=== PATIENT | female | born 1960 | race Caucasian/White ===

== ENCOUNTER → 2017-06-17 | Day surgery (SDC) | payer BC ==
[2017-06-12 12:00] VITALS: BMI 34.0
[~2017-06-17] VITALS: Ht 157.5 cm; Wt 84.1 kg
[~2017-06-17] MED LIST: ATROPINE SULFATE 0.1 MG/ML 5ML SYR IV PRN; BUPIVACAINE 0.5 % 5 MG/1 ML PF 10ML VIAL ONE; CEFAZOLIN SOD 1000MG/7.5 ML IV PUSH IV ONE; DEXAMETHASONE SOD INJ 4 MG/ML VIAL ONE; EpHEDrine SULFATE 50MG/5ML SYR ONE; EpHEDrine SULFATE INJ 50 MG/ML AMP IV PRN; EpINEphrine HCL INJ 1 MG/ML 1ML SYRINGE ONE; EpINEphrine INJ 1MG/ML AMP 1 MG/ML AMP ONE; FENTANYL CITRATE INJ 50 MCG/1 ML 2 ML VIAL IV PRN; FENTANYL CITRATE INJ 50 MCG/1 ML 2 ML VIAL ONE; HYDR12.56 PO; HYDROmorphone INJ 1 MG/ML SYR IV PRN; LABETALOL HCL IV 5 MG/ML 20ML IV PRN; LACTATED RINGER'S 1000ML 1,000 ML IV SCH; LIDOCAINE HCL 2% 2 ML VIAL (20MG/ML) ONE; MAGN1CAP4 PO; MEPERIDINE HCL 25 MG/ML CARP IV PRN; MIDAZOLAM HCL 1 MG/ML 2ML VIAL ONE; MoRPHine SULFATE 2 MG/ML CARP IV PRN; ONDANSETRON INJ 2 MG/ML 2 ML VIAL IV PRN; ONDANSETRON INJ 2 MG/ML 2 ML VIAL ONE; OXYC1TAB3 PO; PHENYLEPHRINE 100MCG/ML 5ML SYR ONE; PROPOFOL IV EMULSION 10 MG/ML 20 ML VIAL IV ONE; ROPIVACAINE 0.5% 5 MG/ML 30 ML VIAL ONE; SERT25TA PO
--- NOTE | 2017-06-17 07:17 | History and Physical ---
History & Physical Date Jun 17, 2017. Chief Complaint Patient presents to 56-year-old white female with severe pain about the right shoulder with right shoulder impingement syndrome AC joint DJD's presents for shoulder arthroscopy cardioplasty distal clavicle excision but no response to conservative therapy including physical therapy anti-inflammatories relative rest activity modification History of Present Illness The patient is a 56 year old female with complaints of ongoing pain about the right shoulder with positive impingement findings she has positive impingement syndrome with AC joint that he should be no response to conservative therapy including physical therapy anti-inflammatories, injection presents for shoulder arthroscopy Additional History Hepatic Disease: No Endocrine Disorder: No Kidney Disease: No Hypertension: Yes Heart Disease: No Bleeding Tendencies: No Infectious Diseases: No Allergies Coded Allergies: Acetaminophen (Verified Allergy, Unknown, DUE TO LIVER PROBLEMS, 06/12/17) NSAIDs (Verified Allergy, Unknown, DUE TO LIVER PROBLEMS, 06/12/17) PT DOES TAKE IBUPROFEN AND NAPROXEN OCCASIONALLY Sulfa Antibiotics (Verified Allergy, Unknown, DUE TO LIVER PROBLEMS, ) Home Medications Scheduled Hydrochlorothiazide (Hctz), 12.5 MG PO QAM Magnesium Oxide (Magnesium), 500 MG PO HS Sertraline (Zoloft), 25 MG PO HS Physical Examination Skin: warm/dry Eyes: normal inspection, EOMI, sclerae normal ENT: normal ENT inspection, pharynx normal Head: normocephalic, atraumatic Neck: supple, no adenopathy, trachea midline Respiratory/Chest: lungs clear, normal breath sounds, no respiratory distress Cardiovascular: regular rate, rhythm, no edema, no murmur Abdomen / GI: normal bowel sounds, non tender Back: normal inspection Extremities: + pertinent finding (Painful right shoulder with positive impingement findings and AC joint DJD) Diagnosis Patient presents with impingement syndrome AC joint DJD right shoulder no response to conservative therapy including physical therapy of inflammatory relative rest she presents for shoulder arthroscopy 12 week excision possible rotator cuff repair pending findings at time of surgery Plan of Treatment Patient has impingement syndrome AC joint DJD right shoulder no response to conservative therapy plans for arthroscopy orthoscopic subacromial decompression distal clavicle excision postoperative pain meds DVT prophylaxis antibiotics as necessary
--- NOTE | 2017-06-17 13:08 | History & Physical Bridge Note ---
H&P Re-Evaluation Bridge Note: I have examined the patient, reviewed the History & Physical and in the interval since the performance of the History & Physical I have noted the following changes of clinical significance: No changes noted
[2017-06-17 14:22] VITALS: BP 166/92; PULSE 76; TEMP 36.6; O2SAT 97; Ht 157.5 cm; Wt 84.1 kg
--- NOTE | 2017-06-17 17:21 | [facility] Post Operative Brief Note ---
Immediate Operative Summary Operative Date Jun 17, 2017. Pre-Operative Diagnosis Right shoulder osteoarthritis, impingement syndrome Post-Operative Diagnosis Right shoulder osteoarthritis, impingement syndrome Procedure(s) Performed Right Shoulder Arthroscopic Subacromial Decompression, Distal Clavicle Excision Surgeon Dr. Cordoba Job Service Consultant Surgeon(s) none Estimated Blood Loss 2cc Findings Consistent with Post-Op Diagnosis Specimens None Drains None Anesthesia Type General Complication(s) none Disposition Disposition: Recovery Room / PACU
--- NOTE | 2017-06-17 17:24 | [facility] Operative Report ---
Operative Report Operative Date Jun 17, 2017. Pre-Operative Diagnosis Right shoulder osteoarthritis, impingement syndrome Post-Operative Diagnosis Right shoulder osteoarthritis, impingement syndrome Procedure(s) Performed Right Shoulder Arthroscopic Subacromial Decompression, Distal Clavicle Excision Surgeon Dr. Cordoba Pathology Secretary/Transcriptionist Surgeon(s) none Estimated Blood Loss 2cc Findings Patient presents with ongoing signs of impingement about her right shoulder with AC joint DJD type III acromion and articular sided rotator cuff tear for arthroscopy for subacromial plasty distal clavicle excision and debridement of articular sided cuff tear Specimens None Drains None Anesthesia Type General Complication(s) none Disposition Recovery Room / PACU Indications Patient presents with ongoing flank pain but no response to conservative therapy through the physical therapy anti-inflammatories rest subacromial injections and anti-inflammatories presents fluoroscopic evaluation of her right shoulder for impingement syndrome AC joint DJD and articular side cuff tear Description of Procedure After proper prepping draping the right shoulder region are scop examination beginning region of the glenohumeral joint revealed the labrum to be intact no evidence of labral tear was noted the biceps tendon was noted to be intact no evidence of biceps tendon tear was noted the glenohumeral articular cartilage was noted to be in excellent condition there is noted be evidence of a small area of scar from the articular side of the rotator cuff which was debrided with a stable margin subacromial space is markedly thickened hypertrophic synovium with a type III anterior acromion and AC joint DJD which was of quite significant patient underwent anterior inferior cardioplasty subacromial decompression excision of bursa as well as an excision of the distal 10 mm of clavicle back to a nice stable border of particular matter bruise removed skin ports were closed with 4-0 nylon and sterile compressive dressing was placed as well as a sling the patient to tolerate procedure well was taken to recovery in stable condition. I attest to the content of the Intraoperative Record and any orders documented therein. Any exceptions are noted below.
--- NOTE | 2017-06-17 17:38 | Discharge Instructions ---
Discharge Instructions Date of Service Jun 17, 2017. Visit Reason for Visit: Right Shoulder Osteoarthritis, Impingement Syndrom Discharge Discharge Diagnosis / Problem: Right shoulder osteoarthritis; Impingement syndrome Discharge Goals Goal(s): Decrease discomfort, Improve function, Increase independence Activity Recommendations Activity Limitations: per Instructions/Follow-up section Anesthesia . Post Anesthesia Instructions: If you have had General Anesthesia or IV Sedation: * Do not drive today. * Resume driving when surgeon permits. * Do not make important decisions or sign legal documents today. * Call surgeon for: 1. Temperature elevations greater than 101 degrees F. 2. Uncontrollable pain. 3. Excessive bleeding. 4. Persistent nausea and vomiting. 5. Medication intolerance (nausea, vomiting or rash). * For nausea and vomiting use only clear liquids such as: tea, soda, bouillon until nausea subsides, then gradually increase diet as tolerated. * If you have any concerns or questions, call your surgeon's office. If physician is unavailable and it is an emergency, call 911 or go to the nearest emergency room. . Instructions / Follow-Up Instructions / Follow-Up [facility] [place] DISCHARGE INSTRUCTIONS: SHOULDER ARTHROSCOPY with or without Distal Clavicle Excision SELF CARE INSTRUCTIONS AFTER: A. You are allowed to use your arm actively as comfort allows. Recommend NOT doing repetitive overhead activity or heavy lifting. B. You should start Physical Therapy within 1-3 days from your surgery. You will be provided a prescription with specific restrictions, if needed, at time of discharge. C. You can discontinue the sling as comfort allows within one to two days after surgery. A. At 48 hours post-operatively, you may change your dressing. . (Leave white steri-strips intact if present). Use band-aids and change daily. You are allowed to shower at this time and get the incision area wet, but DO NOT soak or submerge incision area in water. (No baths, swimming pools, hot tubs) B. Do NOT apply soap or any ointment/lotions directly over incision. C. You may use ice as needed to operative shoulder SPECIAL CARE INSTRUCTIONS: VERY IMPORTANT TO READ AND REVIEW A. There are a few signs you need to watch for after you are home. Call [facility] at [phone] if you experience any of the following: a. Increased severe shoulder pain. Some pain is expected especially when you exercise b. Increased swelling in your shoulder or arm; pain or swelling in either upper extremity. (Note: swelling and stiffness is normal and expected for several weeks post op, depending on type of shoulder surgery you had). c. Any fluid or drainage from the incision; redness of the incision. d. Shortness of breath or chest pain. B. Please call [facility] at [phone] if you have any questions or concerns about your operation or recovery. C. Call your physician if: a. Temperature is greater than 101 degrees (F). b. Pain is not relieved by prescribed pain medications. c. Increase drainage or redness from incision. d. Unanswered questions or concerns. D. Pain Medication: a. You will be prescribed pain medication upon discharge that should last till your first post-operative appointment. b. You may also take Advil or Ibuprofen between medication doses if you do not have any contraindication to taking them. c. You may also take Advil or Ibuprofen in place of your pain medication if the pain is tolerable. d. If you experience nausea and/or skin rash, discontinue this medication and contact our office for an alternative medication. e. Caution- narcotic pain medication can cause constipation. FOLLOW UP VISIT: Please call [facility] at [phone] to schedule a follow up appointment 10-14 days from your surgery date. Diet Recommendations Recommended Home Diet: resume previous diet Procedures Procedures Performed: Right Shoulder Arthroscopic Subacromial Decompression, Distal Clavicle Excision Pending Studies Studies pending at discharge: no Medical Emergencies . Who to Call and When: Medical Emergencies: If at any time you feel your situation is an emergency, please call 911 immediately. . Non-Emergent Contact Non-Emergency issues call your: Surgeon Call Non-Emergent contact if: temperature is above 101.5, your pain is not controlled, your pain is worsening, wound has increased drainage, wound has increased redness . . "Provider Documentation" section prepared by Salas Peters. . [place] Drug Monitoring Program Search Results: patient reviewed within database, no issues identified
--- NOTE | 2017-06-17 17:58 | Anesthesiology Progress Note ---
Anesthesia Post Op Note Date & Time Jun 17, 2017 at 17:57 Vital Signs Pain Intensity: 0 Vital Signs Past 12 Hours Date Time Temp Pulse Resp B/P (MAP) Pulse Ox O2 Delivery O2 Flow Rate FiO2 06/17/17 17:51 67 21 06/17/17 17:51 67 21 149/82 94 06/17/17 17:46 64 22 158/88 99 06/17/17 17:46 63 22 06/17/17 17:41 63 16 06/17/17 17:41 64 16 162/88 100 06/17/17 17:40 69 21 100 06/17/17 17:40 67 21 06/17/17 17:36 152/89 06/17/17 17:35 69 19 06/17/17 17:35 70 19 100 06/17/17 17:31 150/90 06/17/17 17:30 60 16 100 06/17/17 17:30 60 16 06/17/17 17:26 155/83 06/17/17 17:25 36.0 69 16 155/83 100 Oxymask 10 06/17/17 14:22 36.6 76 76 166/92 (116) 97 Room Air Notes Mental Status: alert / awake / arousable, participated in evaluation Pt Amnestic to Procedure: Yes Nausea / Vomiting: adequately controlled Pain: adequately controlled Airway Patency, RR, SpO2: stable & adequate BP & HR: stable & adequate Hydration State: stable & adequate Anesthetic Complications: no major complications apparent
[2017-06-17 18:16] VITALS: BP 141/80; PULSE 66; TEMP 36.6; O2SAT 97
[2017-06-17 18:36] VITALS: BP 142/80; PULSE 70; TEMP 36.6; O2SAT 93
== END | disposition home or self-care (01) ==
LOC: C.ACU 13:42
PROVIDERS: ATTEND Orthopaedic Surgery
DX: M19.011 Primary osteoarthritis, right shoulder (principal); M75.41 Impingement syndrome of right shoulder; Z88.2 Allergy status to sulfonamides; Z88.8 Allergy status to other drugs, medicaments and biological substances; Z98.818 Other dental procedure status; Z98.890 Other specified postprocedural states; Z79.899 Other long term (current) drug therapy